=== PATIENT | male | born 1960 | race Caucasian/White ===

== ENCOUNTER 2024-09-08 09:10 | Observation (INO) | payer MEDICARE, BC ==
[2024-09-08] VITALS (8 sets, daily range): BP systolic 111–139; BP diastolic 75–90
[~2024-09-08] VITALS: Ht 185.4 cm; Wt 98.1 kg
[2024-09-08] MEDS ORDERED: TOPROL XL50 MG PO ×2 (09:32)
[2024-09-08] MEDS ORDERED: NORVASC5 MG PO ×2 (09:33)
[2024-09-08] MEDS ORDERED: ZESTRIL40 MG PO ×2 (09:33)
[2024-09-08 09:41] LABS: BASOPHILS 0.4 % (0.2-1.2); EOSINOPHILS 0.7 % (0.8-7.0); HEMOGLOBIN 13.8 g/dL (13.7-17.5); LYMPHOCYTES 9.1 % (21.8-53.1); MCH 32.6 PG (25.7-32.2); MCHC 34.5 g/dL (32.3-36.5); MCV 94.6 fL (79.0-92.2); MONOCYTES 10.8 % (5.3-12.2); NEUTROPHILS 78.6 % (34.0-67.9); PLATELET COUNT 162 K/uL (163-337); RBC 4.23 M/uL (4.63-6.08)
[2024-09-08] MEDS ORDERED: SEVOFLURANE 250 ML BTL INH ONE (09:47)
[2024-09-08 09:52] LABS: ALBUMIN 3.3 g/dL (3.4-5.0); ALBUMIN/GLOBULIN RATIO 0.77 (1.1-2.4); ANION GAP 13.8 (7-21); BUN/CREATININE RATIO 11.76 (6.0-28.6); CALCIUM 8.8 mg/dL (8.5-10.1); CREATININE, SERUM 0.85 mg/dL (0.70-1.30); POTASSIUM 3.8 mmol/L (3.5-5.1); PROTEIN, TOTAL 7.6 g/dL (6.4-8.2)
[2024-09-08] MEDS ORDERED: ondansetron HCL 4 MG/2 ML VIAL IV ONE (10:00)
[2024-09-08] MEDS ORDERED: SODIUM CHLORIDE 0.9% 1,000 ML IV PRN (10:00)
[2024-09-08] MEDS ORDERED: HYDROmorphone HCL 1 MG/ML SYR IV ONE (10:00)
[2024-09-08 11:09] LABS: BILIRUBIN, URINE NEGATIVE (negative); BLOOD/HGB, URINE NEGATIVE (Negative); KETONE, URINE NEGATIVE (Negative); LEUK ESTERASE, URINE NEGATIVE (negative); NITRITE, URINE NEGATIVE (negative)
[2024-09-08] MEDS ORDERED: LACTATED RINGER'S 1,000 ML IV SCH ×2 (13:15→16:30)
[2024-09-08] MEDS ORDERED: FAMOTIDINE 20 MG/ 2 ML VIAL IV ONE (13:30)
[2024-09-08] MEDS ORDERED: CEFAZOLIN SODIUM 2 GM/20 ML SYR IV ONE (13:30)
[2024-09-08] MEDS ORDERED: fentaNYL citrate 100 MCG/2 ML VIAL ONE (14:07)
[2024-09-08] MEDS ORDERED: dexmedeTOMIDine HCl 200 MCG/2 ML VIAL ONE (14:08)
[2024-09-08] MEDS ORDERED: propofoL 200 MG/20 ML VIAL ONE (14:08)
[2024-09-08] MEDS ORDERED: KETAMINE in NS 50 MG/5 ML SYR ONE (14:08)
[2024-09-08] MEDS ORDERED: DEXAMETHASONE SOD PHOS 4 MG/ML VIAL ONE (14:08)
[2024-09-08] MEDS ORDERED: MAGNESIUM SULFATE 1 GM/2 ML VIAL ONE (14:08)
[2024-09-08] MEDS ORDERED: KETOROLAC TROMETHAMINE 30 MG/ML VIAL ONE (14:08)
[2024-09-08] MEDS ORDERED: ondansetron HCL 4 MG/2 ML VIAL ONE (14:08)
[2024-09-08] MEDS ORDERED: LIDOCAINE HCL 2% 5 ML SDV ONE (14:09)
[2024-09-08] MEDS ORDERED: ACETAMINOPHEN 1,000 MG/100 ML VIAL ONE (14:09)
[2024-09-08] MEDS ORDERED: ROCURONIUM BROMIDE 50 MG/5 ML SYR ONE ×2 (14:09→15:22)
[2024-09-08] MEDS ORDERED: iopamidoL 30 ML VIAL ONE (14:10)
[2024-09-08] MEDS ORDERED: SODIUM CHLORIDE 0.9% 40 ML IV ONE (14:10)
[2024-09-08] MEDS ORDERED: GLYCOPYRROLATE 1 MG/5 ML MDV ONE (14:51)
[2024-09-08] MEDS ORDERED: ePHEDrine sulfate 50 MG/ML AMP ONE (14:52)
[2024-09-08] MEDS ORDERED: MORPHINE SULFATE 10 MG/ML VIAL ONE (15:03)
[2024-09-08] MEDS ORDERED: ALPRAZOLAM0.5 MG PO ×2 (15:23)
--- NOTE | 2024-09-08 15:38 | EKG ---
[facility] [address] [facility] [place], [place] [address] Signed Normal sinus rhythm Normal ECG No previous ECGs available Confirmed by Federico Curtis DO ([id number]) on 09/08/2024 3:38:51 PM Electronically Signed By: FEDERICO CURTIS DO 09/08/24 1538 PATIENT NAME: MALIK REAL Electrocardiogram DATE OF : 56 PHYSICIAN: FEDERICO CURTIS DO REPORT #: [id number] REPORT IS CONFIDENTIAL AND NOT TO BE RELEASED WITHOUT AUTHORIZATION
[2024-09-08] MEDS ORDERED: SUGAMMADEX SODIUM 200 MG/2 ML ML ONE (15:56)
[2024-09-08] MEDS ORDERED: IBLOOD GLUCOSE TEST STRIP 1 EA TEST VI PRN (16:00)
[2024-09-08] MEDS ORDERED: fentaNYL citrate 50 MCG/ML SDV IV PRN (16:00)
[2024-09-08] MEDS ORDERED: ondansetron HCL 4 MG/2 ML VIAL IV PRN ×2 (16:00→16:30)
[2024-09-08] MEDS ORDERED: HYDROmorphone HCL 1 MG/ML SYR IV PRN (16:00)
[2024-09-08] MEDS ORDERED: NALOXONE HCL 0.4 MG SYR IV PRN (16:00)
[2024-09-08] MEDS ORDERED: KETOROLAC TROMETHAMINE 30 MG/ML VIAL IV PRN (16:30)
[2024-09-08] MEDS ORDERED: OXYCODONE/APAP 7.5/325 TAB PO PRN (16:30)
[2024-09-08] MEDS ORDERED: MORPHINE SULFATE 10 MG/ML VIAL IV PRN (16:30)
--- NOTE | 2024-09-08 16:33 | NUR ---
09/08/24 1633 LAURA JAMES 1613 PT ARRIVED TO PACU WITH NATURAL AIRWAY. PT ON 8L OF OXYGEN, LOWERED TO 6L VIA MASK. DRAIN PLACED IN UPPER RIGHT QUADRENT OF ABDOMEN DRAINING. PT HAS X4 LAP SITES WITH SS. 1621 PT REMOVED FROM OXYGEN, AND ICE CHIPS GIVEN. PT OXYGEN ABOVE 90%. 1627 PT OXYGEN DROPPED TO 88% PLACED ON 3L VIA NASAL CANULLA, PT OXYGEN SATURATION STAYING ABOVE 90% ON 3L. PT REPORTS NO PAIN AT THIS TIME OR NAUSEA. 1632 DR KAHN AT BEDSIDE SPEAKING WITH PT. WILL UPDATE .
--- NOTE | 2024-09-08 16:50 | NUR ---
PATIENT ARRIVES VIA HOSPITAL BED, REPORT RECEIVED BY WILIAN MUKHERJEE FOR WILIAN SAN. PATIENT IS ON 3LNC. CPOX AND SCDs PLACE, VS AND WT OBTAINED. PATIENT HAS CALL LIGHT LIGHT. NO REQUESTS AT THIS TIME.
--- NOTE | 2024-09-08 17:00 | NUR ---
PT UP TO MEDICAL FLOOR, VSS. CPOX IN PLACE, SCDs IN PLACE. PT AWAKE AND A+0X4. PT ON 3L O2 VIA NC D/T O2 SATURATION BEING <88%. PT STATES PAIN IS 6/10 AT THIS TIME, STATES HE WOULD LIKE PAIN MEDICATION WHEN AVAILABLE. PT DENIES NAUSEA OR SOB AT THIS TIME. PT DRINKING WATER W/O DIFFICULTY. LAP SITES WITH SCANT AMOUNT OF SEROSANGUINOUS DRAINAGE, DRAIN SITE WITH SMALL AMOUNT OF SEROSANGUINOUS DRAINAGE. DRAIN EMPTIED, SUCTION REAPPLIED. PT STATES NO FURTHER NEEDS AT THIS TIME, CALL LIGHT WITHIN REACH.
[2024-09-08 17:06] LABS: INR 1.32 (0.80-1.30); PROTIME 15.8 Sec (11.2-14.2)
--- NOTE | 2024-09-08 17:45 | NUR ---
PT WEANED TO ROOM AIR, O2 SATURATION >92%.
--- NOTE | 2024-09-08 17:55 | NUR ---
PT REQUESTS SHAHBAZ TREVIÑO, GIVEN. PT STATES NO OTHER NEEDS, CALL LIGHT WITHIN REACH.
--- NOTE | 2024-09-08 19:40 | NUR ---
REPORT RECEIVED FROM DAY SHIFT RN. PT RESTING IN BED. SAFETY PRECAUTIONS MAINTAINED. CALL LIGHT WITHIN REACH. WILL CONTINUE TO MONITOR.
[2024-09-08] MEDS ORDERED: ALPRAZolam 0.25 MG TAB.RAPDIS PO PRN (20:00)
[2024-09-08] MEDS ORDERED: FAMOTIDINE 20 MG/ 2 ML VIAL IV SCH (21:00)
--- NOTE | 2024-09-08 21:30 | NUR ---
PT ASSESSED AND MEDICATIONS GIVEN. PT RATING PAIN 8/10. PAIN MEDICATION GIVEN. VSS. IVF INFUSING PER ORDERS. 5 LAP SITES DRY AND INTACT. OLD DRIANAGE NOTED. NO NEW DRAINAGE NOTED. DENISE DRAIN INTACT, MODERATE OUTPUT NOTED. PT UP SBA TO BATHROOM. SAFETY PRECAUTIONS MAINTAINED. CALL LIGHT WITHIN EACH. WILL CONTINUE TO MONITOR.
[2024-09-08] MEDS ORDERED: ACETAMINOPHEN 500 MG TAB PO SCH (22:00)
[2024-09-08] MEDS ORDERED: CEFAZOLIN SODIUM 2 GM/20 ML SYR IV SCH (22:00)
--- NOTE | 2024-09-08 22:55 | NUR ---
PT UTILIZES CALL LIGHT, STATES HE WOULD LIKE PRN XANAX. PRN ADMINISTERED, SEE EMAR. PT'S AT BEDSIDE. PT AND HIS DENY NEEDS AT THIS TIME. CALL LIGHT IN REACH.
[2024-09-09] VITALS (8 sets, daily range): BP systolic 111–130; BP diastolic 70–72
--- NOTE | 2024-09-09 00:01 | NUR ---
PT RESTING IN BED WITH EYES CLOSED. SAFETY PRECAUTIONS MAINTAINED. CALL LIGHT WITHIN REACH. WILL CONTINUE TO MONITOR.
--- NOTE | 2024-09-09 06:25 | NUR ---
PT RESTED SOME DURING THE SHIFT. VSS. PAIN MANAGED WITH ORDERED PAIN MEDICATION, PER PT, IV MORPHINE WORKS BEST. PT UP SBA TO BATHROOM, GOOD OUT PUT NOTED. IVF INFUSING PER ORDER, IV ABX GIVEN PER ORDER. DENISE INTACT, SOME DRAINAGE NOTED ON DRSG. DENISE LINE STRIPPED THROUGHOUT SHIFT, LARGE OUTPUT NOTED. PT STAYED AT BEDSIDE THROUGHUT SHIFT. SAFETY PRECAUTIONS MAINTAINED. CALL LIGHT WITHIN REACH. WILL CONTINUE TO MONITOR.
--- NOTE | 2024-09-09 07:27 | NUR ---
PT LAYING IN BED WITH EYES CLOSED CHEST RISE EQUAL BILAT AT THIS TIME. PT HAS CALL LIGHT IN REACH AT THIS TIME WITH PRESENT IN ROOM.
[2024-09-09] MEDS ORDERED: IBUPROFEN 600 MG TAB PO PRN (07:45)
--- NOTE | 2024-09-09 08:36 | NUR ---
PT IN BED, HAD FINISHED BREAKFAST, AWAKE AND ALERT IN ROOM, PT REPORTED NOT SLEEPING WELL LAST NIGHT DUE TO GETTING BEHIND IN PAIN MEDICATION PT REQUESTED PAIN MEDICATION, i SAID I WOULD LET NURSE KNOW - CHANGED WHITE BOARD, GOT PT FRESH ICE WATER AND REMOVED BREAKFAST TRAY CALL LIGHT WITHIN REACH, PT REPORTED NEEDING NOTHING ELSE AT THIS TIME
[2024-09-09] MEDS ORDERED: FAMOTIDINE 20 MG TAB PO SCH (09:00)
--- NOTE | 2024-09-09 09:00 | NUR ---
PT SITTING UP IN BED AT THIS TIME, PT REQUESTED MEDICATION FOR PAIN IN THEIR ABD 4-10. AND WAS GIVEN PRN MOTRIN (SEE EMAR). PT HAS NO OTHER CONCERNS AT THIS ITME AND WAS EDUCATED ABOUT PAIN MANAGEMENT. PT HAS CALL LIGHT IN REACH AT THIS TIME.
--- NOTE | 2024-09-09 10:57 | NUR ---
PT LAYING IN BED, AWAKE AND ALERT, BUT LIGHTS WERE OFF IN ROOM PT ASKED FOR CHEESE, GOT HIM TWO STRING CHEESE GOT PT FRESH ICE WATER AND GOT FRESH COFFEE WITH ONE CREAM
--- NOTE | 2024-09-09 11:57 | NUR ---
PT SITTING UP IN BED AT THIS TIME, PT DENISE DRAIN HAS SLOWLY DECREASED IN SEROSANG OUTPUT, PT HAS NO CONCERNS AT THIS TIME CALL LIGHT IN REACH AT THIS TIME.
--- NOTE | 2024-09-09 12:56 | NUR ---
PT FINISHED HIS LUNCH, REQUESTED KENIA WITH ICE, REPORTED URINATION, I RECORDED THIS ON WHITEBOARD CALL LIGHT WITHIN REACH, IN ROOM, PT REPORTED NEEDING NOTHING ELSE AT THIS TIME
[2024-09-09] MEDS ORDERED: IBUPROFEN600 MG PO ×2 (13:35)
[2024-09-09] MEDS ORDERED: OXYCODON-ACETA1 EAC2 PO ×2 (13:35)
[2024-09-09] MEDS ORDERED: ACETAMINOPHEN500 MG PO ×2 (13:36)
--- NOTE | 2024-09-09 13:48 | NUR ---
PT SITTING UP IN BED AT THIS TIME, PT DENISE REMOVED BY MD KAHN, LAP SITES INTACT WITH DENISE INCISION SITE COVERED WITH ADHESIVE DRESSING. PT HAS NO OTHER CONCERNS AT THIS TIME.
--- NOTE | 2024-09-09 14:30 | OR ---
[facility] [address] [place], [place] [address] Signed DATE OF OPERATION: 09/08/2024 SURGEON: Pura Kahn MD PREOPERATIVE DIAGNOSIS: Acute cholecystitis with gallbladder polyps or possible gallstones. POSTOPERATIVE DIAGNOSES: 1. Acute calculous cholecystitis. No evidence of polyps. 2. Early cirrhotic changes to liver with fatty liver. PROCEDURES: 1. Laparoscopic cholecystectomy with intraoperative cholangiogram. 2. Surgeon-directed fluoroscopy. 3. Laparoscopic liver biopsy (medial segment of left lobe of liver). ANESTHESIA: General endotracheal, Harpal Cortes, SERVICE DESK ASSOCIATE and local 10 mL of 0.25% Marcaine with epinephrine. INDICATION: This 63-year-old white man lives in [place] and travels quite a bit through this area. 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 His is in [place] with his son. The patient was presented to the emergency room with complaints of upper abdominal pain, bloating, fullness, and nausea. Evaluation by Dr. Pantoja included a CT scan, which showed a distended gallbladder. Subsequent ultrasound of the gallbladder showed "9 mm gallbladder polyps." The possibility of adherent stones was considered, however. His liver enzymes are normal. I have recommended he undergo laparoscopic cholecystectomy for what appears to be acute calculous cholecystitis. The risk of bleeding, infection, bile duct injury, need for open procedure, failure to cure symptoms and other unforeseen complications was all reviewed with him. He understands and wished to proceed. FINDINGS: The liver had early cirrhotic changes and fatty liver changes were noted as well. The gallbladder itself was tensely distended, inflamed, and very edematous. The gallbladder had within it multiple black multifaceted gallstones. There was no evidence of gallbladder polyp. Cholangiogram was normal. Early cirrhotic changes of the fatty liver were noted as previously mentioned and core Electronically Signed By: PURA KAHN MD 09/09/24 1430 PATIENT NAME: MALIK REAL OPERATIVE REPORT DATE OF : 56 REPORT #: [id number] PHYSICIAN: PURA KAHN MD PCP: OTHER PCP REPORT IS CONFIDENTIAL AND NOT TO BE RELEASED WITHOUT AUTHORIZATION [facility] [address] [place], [place] [address] Signed biopsy of the medial segment of left lobe of liver undertaken as well. There were no other findings of concern. He had no carcinomatosis and no ascites. DESCRIPTION OF PROCEDURE: The patient was brought to the operating room and given a general endotracheal anesthetic. Preoperative antibiotic Ancef had been given. Sequential compression device stockings used and heparin subcutaneously administered. The abdomen was clipped and prepared with a chlorhexidine solution and draped sterilely. An infraumbilical incision was made and using an open Jennifer cannula technique, pneumoperitoneum was achieved to a level of 14 mmHg of carbon dioxide gas. Intra-abdominal inspection showed no sign of ascites or carcinomatosis, but an edematous and distended gallbladder. The liver showed significant fatty infiltration and early cirrhotic changes as well. He did not appear to have portal hypertension or excessive blood vessels in the area. Three additional trocars were placed in usual configuration in the subxiphoid, right midclavicular, and right anterior axillary line. Attempts at elevating the gallbladder were rather unsuccessful and on that basis, decompression of the gallbladder was undertaken with a needle trocar device. The puncture site was grasped and allowing for elevation of the gallbladder more effectively. Elevation of gallbladder was limited by the fatty dense early cirrhotic liver it was noted. The infundibulum was quite markedly inflamed and edematous. It was grasped and retracted laterally. Using meticulous care and blunt electrocautery dissection, the triangle of Calot was dissected free. Cystic duct was identified and a clip applied proximally. A small transverse choledochotomy was made in the cystic duct allowing for egress of clear bile. Using an Garcia type cholangiocatheter, intraoperative cholangiography was undertaken showing free flow of contrast in the biliary tree. Morphine 4 mg was administered so as to induce ampullary spasm so that additional cholangiographic views could show the more proximal biliary tree. There was no sign of filling defect per se. Catheter was removed, and the cystic duct was triply clipped and divided, and the gallbladder was dissected free in a retrograde fashion. Notably, the gallbladder was at least [address] This combined with his underlying parenchymal disease of liver made dissection slightly challenging. Gallbladder was entered and spillage of stones was noted. These were black and small and multifaceted. Indeed, the gallbladder was so thin and friable that the upper third of the back wall of the gallbladder was allowed to remain in situ and the gallbladder remnant and stones placed in an endobag and extracted through the infraumbilical port. Examination of the mucosa that was retained on the liver was then cauterized to obliterate it completely. Irrigation was undertaken. Hemostasis was assured with electrocautery more fully. Irrigation in the perihepatic space and so forth revealed no other retained stones or any other problem. Dawna was applied to the infundibular area and hepatic bed as well as the base of the falciform ligament as it entered the liver where there was minimal Electronically Signed By: PURA KAHN MD 09/09/24 9063 PATIENT NAME: MALIK REAL OPERATIVE REPORT DATE OF : 56 REPORT #: [id number] PHYSICIAN: PURA KAHN MD PCP: OTHER PCP REPORT IS CONFIDENTIAL AND NOT TO BE RELEASED WITHOUT AUTHORIZATION [facility] [address] [place], [place] [address] Signed bleeding as well. The Dawna that had been applied was effective. A percutaneous laparoscopic-guided core biopsy of the medial segment of left lobe of the liver was undertaken to ascertain the level of scarring and cirrhotic change. That site was hemostatic after application of cautery. The trocars were removed under direct visualization showing no sign of bleeding. The infraumbilical fascial incision was reapproximated with 0-Vicryl suture. Irrigation was undertaken more fully and 10 mL of 0.25% Marcaine with epinephrine was injected locally. The skin was then closed with interrupted 3-0 Vicryl. Steri-Strips were applied, and the patient was ultimately extubated and transferred to the recovery room in good condition, having suffered no known complication. Sponge, needle, and instrument counts reported as correct x3. MD JESUS Lopez/LYNDSEY /[id number] cc: Dr. Doyle, [place], [place] Dr. Pantoja at [facility] Copies: ~ Electronically Signed By: PURA KAHN MD 09/09/24 1430 PATIENT NAME: MALIK REAL OPERATIVE REPORT DATE OF : 56 REPORT #: [id number] PHYSICIAN: PURA KAHN MD PCP: OTHER PCP REPORT IS CONFIDENTIAL AND NOT TO BE RELEASED WITHOUT AUTHORIZATION
--- NOTE | 2024-09-09 14:30 | HP ---
[facility] [address] [place], [place] [address] Signed ADMISSION DATE: 09/08/2024 PROBLEM: Acute calculous cholecystitis. HISTORY: This 63-year-old white man is . His is now in [place]. 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 He presented to the emergency room where he is complaining of right upper abdominal pain and recent nausea and abdominal discomfort. He was thoroughly evaluated by Dr. Pantoja, which included a CT scan of the abdomen showing a distended gallbladder. Abdominal ultrasound was subsequently performed, which was notable for no evidence of "acute cholecystitis," but nonmobile gallbladder wall structures measuring 9 mm described as "polyps." He measured up to 9 mm in size. They were considered either gallbladder polyps or adherent stones (most likely the latter in my opinion). Nonemergent surgical followup was recommended. The patient has some fatty liver disease as well. The patient notes he is generally quite healthy. He is relatively diligent in his medical followup with his primary provider in [place]. He has had surgery including a right shoulder operation and history of left lower extremity fracture. He has ongoing hypertension, for which he takes metoprolol and lisinopril and amlodipine. His blood pressure today is reasonable at 151/84. He has never had abdominal surgery and notes of no family history of biliary disease, though he has had several acquaintances in this area who have had gallbladder surgery. The patient does smoke marijuana and does drink alcohol at least four cocktails weekly. His pain since evaluation in emergency room is improved somewhat, though he still has some bloating and nausea and right upper abdominal pain. REVIEW OF SYSTEMS: He denies any chest pain or shortness of breath. He has had no dysphagia, dysuria, hematemesis or blood per rectum. PHYSICAL EXAMINATION: GENERAL: Pleasant white man, who looks comfortable. VITAL SIGNS: Temperature 98.4, pulse 69, respirations 16, blood pressure 151/84, pulse Electronically Signed By: PURA KAHN MD 09/09/24 1430 PATIENT NAME: MALIK REAL HISTORY AND PHYSICAL DATE OF : 56 REPORT #: [id number] PHYSICIAN: PURA KAHN MD PCP: OTHER PCP REPORT IS CONFIDENTIAL AND NOT TO BE RELEASED WITHOUT AUTHORIZATION [facility] [address] [place] [address] Signed oximetry on room air is 98%. NECK: Trachea is midline. CHEST: Clear. HEART: Regular without murmur. ABDOMEN: Not particularly distended. There is tenderness in the epigastric and right subcostal area. There is no palpable mass. EXTREMITIES: Show no clubbing, cyanosis, or edema. LABORATORY STUDIES: Show a white count of 7.5, hematocrit 40.0, platelets 162,000. Electrolytes normal. Liver enzymes are normal. Bilirubin 1.0, alkaline phosphatase is 109. ASSESSMENT: The patient has tenderness in the right upper abdomen and findings on ultrasound, which are more likely than not adherent gallstones rather than polyps per se. I discussed the pathophysiology of the problem with him in detail and would recommend consideration for cholecystectomy for acute probable calculous cholecystitis. The risk of bleeding, infection, bile duct injury, need for open surgery and other unforeseen complications was reviewed in detail. It is unlikely, but certainly possible that he could have stones in the duct for which ductal intervention would be appropriate. He understands the risks and so forth of this procedure. He wishes to proceed. He notes that his son and his are in [place], [place] about 5 hours away. He is going to call them, which will be of great assistance in his disposition once his surgery is complete. He may require hospitalization longer than today depending on how he does. MD JESUS Lopez/CELYL /[id number] cc: Dr. Pantoja [facility] Electronically Signed By: PURA KAHN MD 09/09/24 1430 PATIENT NAME: MALIK REAL HISTORY AND PHYSICAL DATE OF : 56 REPORT #: [id number] PHYSICIAN: PURA KAHN MD PCP: OTHER PCP REPORT IS CONFIDENTIAL AND NOT TO BE RELEASED WITHOUT AUTHORIZATION [facility] [address] [place], [place] [address] Signed Copies: ~ Electronically Signed By: PURA KAHN MD 09/09/24 1430 PATIENT NAME: ADDIEMALIK SERA HISTORY AND PHYSICAL DATE OF : 56 REPORT #: [id number] PHYSICIAN: PURA KAHN MD PCP: OTHER PCP REPORT IS CONFIDENTIAL AND NOT TO BE RELEASED WITHOUT AUTHORIZATION
--- NOTE | 2024-09-09 14:30 | NUR ---
PT READ DC PAPER WORK, PT EDUCATED ON SURGICAL SITE CARE, WELL PAIN MANAGMENT. PT HAS NO CURRENT CONCERNS AND HAD ALL QUESTIONS ANSWERED. PT SITING IN ROOM AT THIS TIME WAITING FOR RIDE. PT HAS CALL LIGHT IN REACH AT THIS TIME.
--- NOTE | 2024-09-13 15:25 | PATH ---
[facility] [address] [place] [place], [place] [address] Signed SPECIMEN(S): A GALLBLADDER AND CONTENTS SPECIMEN(S): B LIVER BIOPSY SPECIMEN SOURCE: A. GALLBLADDER AND CONTENTS B. LIVER BIOPSY CLINICAL HISTORY: A) cholecystitis, cholelithiasis, B) cirrhotic-appearing liver FINAL PATHOLOGIC DIAGNOSIS: A. Gallbladder, cholecystectomy: - Morphologic features of chronic cholecystitis with cholelithiasis. B. 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 See comment - Negative for malignancy. COMMENT: Peripheral areas of liver could show increased fibrosis, correlation with biopsy location, radiologic findings, clinical history and laboratory testing (liver enzyme panel and hepatitis serology) is needed. NA MICROSCOPIC EXAMINATION: Sections demonstrate multiple core biopsies of liver parenchyma in which the lobular architecture is distorted by [id number] fibrosis and formation of occasional degenerative nodules. The portal areas show mild chronic inflammatory infiltrate composed mostly of lymphocytes. Focal interface inflammation is also noted. The bile ducts are identified and are lined by one layer of cells with no bile duct destruction or lesions identified. No granulomas are present. The hepatocytes are arranged in the usual 2 cell thick plates with mild macrosteatosis is identified. A trichrome stain highlights portal to portal fibrosis and occasional regenerative nodules. A reticulin stain highlights normal lobular arrangements of hepatocytes. A PAS -SEWELL is negative. An iron stain minimal iron deposition. There is no malignancy identified NA PATIENT NAME: ALLENMALIK ARCE PATHOLOGY DATE OF : 56 REPORT #: [id number] PHYSICIAN: RANDALL CALZADA PCP: OTHER PCP REPORT IS CONFIDENTIAL AND NOT TO BE RELEASED WITHOUT AUTHORIZATION [facility] [address] [place], [place] [address] Signed GROSS DESCRIPTION: A. The specimen, labeled and designated "Allen, gallbladder and contents," is received in formalin and consists of Specimen: Previously opened gallbladder. Dimensions: 8.0 x 2.5 x 1.3 cm. Serosa: Yellow-zaldivar and smooth. Cystic Duct: Unobstructed, margin inked black and shaved. Calculi: Multiple black irregularly shaped calculi (0.9 cm in greatest dimension, and 1.5 x 1.0 x 0.9 cm in aggregate). Mucosa: Green-zaldivar and velvety. Wall thickness: 0.1-0.4 cm. Lymph node: No pericystic lymph nodes are grossly identified. Additional: None. Auction Block Clerk sections are submitted in (A1). B. The specimen, labeled and designated "Allen, liver biopsy," is received in formalin and consists of a core of yellow-zaldivar soft tissue (1.2 cm in greatest dimension). The tissue is stained with eosin, and the specimen is submitted entirely in cassette (B1). VB (under the direct supervision of a pathologist) The Gross Description was prepared using a voice recognition system. The report was reviewed for accuracy; however, sound-alike word errors, addition and/or deletions may occur. If there is any question about this report, please contact Client Services. ADDITIONAL NOTES: Immunohistochemical and/or in situ hybridization studies if performed in this case included appropriate positive controls that reacted as expected. This test was developed and its performance characteristics determined by [employer]. It has not been cleared or approved by the U.S. Food and Drug Administration. The FDA has determined that such clearance or approval is not necessary. This test is used for clinical purposes. It should not be regarded as investigational or for research. [employer] is certified under the Clinical Laboratory Improvement Amendments of 1988 (CLIA) as qualified to perform high complexity clinical laboratory testing. PERFORMING LABORATORY: Technical component was performed by [employer], [address] [place] [id number] (CLIA# [id number]). Professional interpretation was PATIENT NAME: MALIK ALLEN PATHOLOGY DATE OF : 56 REPORT #: [id number] PHYSICIAN: RANDALL CALZADA PCP: OTHER PCP REPORT IS CONFIDENTIAL AND NOT TO BE RELEASED WITHOUT AUTHORIZATION [facility] [address] [facility] [place], [place] [address] Signed performed by [employer] (P) Pathology [facility], [address] [place] [address] (CLIA#: [id number]). Diagnostician: Artie Simmons MD Pathologist Electronically Signed 09/13/2024 Copies: ~ PATIENT NAME: MALIK ALLEN PATHOLOGY DATE OF : 56 REPORT #: [id number] PHYSICIAN: RANDALL CALZADA PCP: OTHER PCP REPORT IS CONFIDENTIAL AND NOT TO BE RELEASED WITHOUT AUTHORIZATION
== END 2024-09-09 14:39 | disposition home or self-care (01) ==
LOC: ED 09:10 → MS 09:13
PROVIDERS: Emergency Medicine; ADMIT Surgery; ATTEND Surgery
PROC: 0FB24ZX Excision of Left Lobe Liver, Percutaneous Endoscopic Approach, Diagnostic (ICD-10-PCS; 2024-09-08)
PROC: 0FT44ZZ Resection of Gallbladder, Percutaneous Endoscopic Approach (ICD-10-PCS; principal; 2024-09-08 13:57)
PROC: BF101ZZ Fluoroscopy of Bile Ducts using Low Osmolar Contrast (ICD-10-PCS; 2024-09-08 13:57)
DX: K80.12 Calculus of gallbladder with acute and chronic cholecystitis without obstruction (principal); K73.9 Chronic hepatitis, unspecified; K76.0 Fatty (change of) liver, not elsewhere classified; K74.60 Unspecified cirrhosis of liver; K57.30 Diverticulosis of large intestine without perforation or abscess without bleeding; I10 Essential (primary) hypertension; Z79.899 Other long term (current) drug therapy
CPT/HCPCS: 00790; 36415; 74177; 74300; 76705; 80053; 81003; 83690; 85025; 85610; 88304; 88307; 88313; 93005; 93010; 94762; 96375; 99285-25; A9270; J0131; J0690; J1100; J1171; J1885; J2003; J2270; J2405; J2704; J3010; J3475; J3490; J7030; J7121; Q9967

== ENCOUNTER 2024-09-21 08:16 | Day surgery (SDC) | payer MEDICARE, BC ==
[~2024-09-21] VITALS: Ht 185.4 cm; Wt 93.1 kg
[~2024-09-21 08:16] MED LIST: ACETAMINOPHEN500 MG PO; ALPRAZOLAM0.5 MG PO; IBUPROFEN600 MG PO; NORVASC5 MG PO; OXYCODON-ACETA1 EAC2 PO; TOPROL XL50 MG PO; ZESTRIL40 MG PO
[2024-09-21] MEDS ORDERED: LIDOCAINE HCL 1% 30 ML SDV ONE (10:53)
--- NOTE | 2024-09-22 10:04 | OR ---
[facility] [address], [place] [address] Signed DATE OF OPERATION: 09/21/2024 SURGEON: Pura Kahn MD PREOPERATIVE DIAGNOSES: 1. History of laparoscopic cholecystectomy with intraoperative cholangiogram for acute cholecystitis on September 08, 2024. 2. Recently recognized stage I cirrhosis of liver (biopsy-proven at time of cholecystectomy). 3. Postoperative development of ascites and episodic, temperature elevation to 100.2. POSTOPERATIVE DIAGNOSES: 1. History of laparoscopic cholecystectomy with intraoperative cholangiogram for acute cholecystitis on September 08, 2024. 2. Recently recognized stage I cirrhosis of liver (biopsy-proven at time of cholecystectomy). 3. Postoperative development of ascites and episodic, temperature elevation to 100.2. 4. Crystal clear yellow ascites fluid. PROCEDURE: Ultrasound-guided paracentesis, right lower abdomen. ANESTHESIA: 1% lidocaine local. INDICATION: This 63-year-old white man is from [place] and a patient of TARYN Tejeda at the [facility] in [place], [place]. More than two weeks ago, he presented to the emergency room at [facility] in [place], [place] and was found to have acute cholecystitis and underwent laparoscopic cholecystectomy with intraoperative cholangiogram. He was found to have concurrent cirrhosis of the liver in its early stages based on clinical appearance. Liver biopsy was concurrently performed, which confirmed cirrhosis. He did well postoperatively, though he did develop some abdominal swelling. He began having temperature elevation to 100.2 with associated chills a week after surgery and presented to the hospital in [place], [place] ([facility]) and had a full evaluation including CT scan, lab studies and so on, all of which were negative. He had persistent symptoms and presented to the urgent walk-in care clinic the following day, where clinical appearance had been unchanged. He was recommended to follow up with me and I saw him yesterday in the office. Although, he has reported a temperature to 100.2, he has had no other higher temperature elevation. Electronically Signed By: PURA KAHN MD 09/22/24 1004 PATIENT NAME: MALIK REAL OPERATIVE REPORT DATE OF : 56 REPORT #: [id number] PHYSICIAN: PURA KAHN MD PCP: OTHER PCP REPORT IS CONFIDENTIAL AND NOT TO BE RELEASED WITHOUT AUTHORIZATION [facility] [address] [place] [id number] Signed The patient has quite clearly developed ascites postoperatively, which is not uncommon following general anesthesia with occult cirrhosis. In the office, he was afebrile with a temperature of 97.6 and subsequently 96.8. He did not appear troubled, had no evidence of infection anywhere including the incisions or wound, but he did have noticeable ascites. Though quite unlikely, the possibility of spontaneous bacterial peritonitis (infected ascites fluid) was considered. He declined admission to the hospital, but agreed to outpatient paracentesis at this time for assessment and treatment if appropriate. Overnight, I have asked him to monitor his temperature and at 6:00 p.m., it was 99.7; at 8:00 p.m. 100.1; 10:20 p.m. 98.0; 2:30 a.m. 100.0; and 5:30 a.m. 99.8. He continues to look completely asymptomatic. He is here now for paracentesis to assess peritoneal fluid and if needed, treatment for that. FINDINGS: Under ultrasound guidance, an area of fluid collection was easily identified. The fluid was easily withdrawn with straw colored in appearance. A liter of fluid was ultimately removed to improve patient comfort. He tolerated procedure well. DESCRIPTION OF PROCEDURE: The patient was taken to the day surgery area in the patient room and evaluation of the abdominal cavity with the SonoSite ultrasound was undertaken. There appeared to be areas that ascites fluid was available. The most optimal area was the right lower abdomen. The area was prepared with a chlorhexidine solution and draped sterilely. A 1% lidocaine with epinephrine was injected locally. With the curved SonoSite ultrasound probe, evaluation of the abdomen was once again undertaken and under direct visualization after a small incision made with an 11 blade tip, the paracentesis needle was guided into the pocket of fluid. Aspiration demonstrated crystal clear yellow fluid. A large syringe was obtained and the entry catheter associated with the needle was deployed. It was deemed reasonable to additionally remove additional fluid and using a stopcock applied to the NG catheter, 1 L of ascites fluid was removed without problem. The catheter began having little ability to drain more and it was removed and a Band-Aid was applied. He tolerated the procedure well. The fluid will be sent for cytology as well as chemistry and Gram stain and culture. Given the clinical appearance of the fluid, I think it is extremely unlikely that he has infected ascites fluid. If he does, then appropriate treatment will be initiated. It is highly probable that his low-grade temperature elevation is related to reaction associated with the ascites and underlying inflammatory condition of the liver itself. If the patient has further issues he will call me or present to the emergency room either in [place] or locally in [place] where he intends to return today. Electronically Signed By: PURA KAHN MD 09/22/24 1004 PATIENT NAME: ADDIEMALIK SERA OPERATIVE REPORT DATE OF : 56 REPORT #: [id number] PHYSICIAN: PURA KAHN MD PCP: OTHER PCP REPORT IS CONFIDENTIAL AND NOT TO BE RELEASED WITHOUT AUTHORIZATION [address] [place] [address] Signed MD JESUS Lopez/CELYL /[id number] cc: Elin Still [address], and [phone] Copies: ~ Electronically Signed By: PURA KAHN MD 09/22/24 1004 PATIENT NAME: MALIK REAL OPERATIVE REPORT DATE OF : 56 REPORT #: [id number] PHYSICIAN: PURA KAHN MD PCP: OTHER PCP REPORT IS CONFIDENTIAL AND NOT TO BE RELEASED WITHOUT AUTHORIZATION
[2024-09-22 18:45] LABS: LACTATE DEHYDROGENASE TOTAL,BF 59 U/L (())
== END 2024-09-21 12:10 | disposition home or self-care (01) ==
LOC: DS 08:16
PROVIDERS: ATTEND Surgery
DX: K74.69 Other cirrhosis of liver (principal); R18.8 Other ascites; I10 Essential (primary) hypertension; R50.82 Postprocedural fever; Z79.899 Other long term (current) drug therapy; Z90.49 Acquired absence of other specified parts of digestive tract
CPT/HCPCS: 49082; 83986; 87205; 88112; 88305